=== PATIENT | female | born 1940 | race Caucasian/White ===

== ENCOUNTER → 2016-11-09 | Outpatient (CLI) | payer MEDICARE, MEDICAID | END | disposition disaster alternative care site (69) | LOC: GRAD 08:43 | DX: M25.531 Pain in right wrist (principal); M21.931 Unspecified acquired deformity of right forearm; M11.231 Other chondrocalcinosis, right wrist; M85.68 Other cyst of bone, other site; R93.7 Abnormal findings on diagnostic imaging of other parts of musculoskeletal system; W19.XXXA Unspecified fall, initial encounter ==